=== PATIENT | female | born 1965 | race Caucasian/White ===

== ENCOUNTER → 2016-12-25 | Outpatient (CLI) | payer BC ==
--- NOTE | 2016-12-29 10:19 | MM ---
Reason for exam: screening (asymptomatic). History: Family history of breast cancer in mother at age 52. Benign excisional biopsy of the right breast, 1998. Physical Findings: A clinical breast exam by your physician is recommended on an annual basis and results should be correlated with mammographic findings. MG 3D Screening Mammo W/Cad Bilateral CC and MLO view(s) were taken. The breast tissue is heterogeneously dense. This may lower the sensitivity of mammography. There is no discrete abnormality. No significant changes when compared with prior studies. ASSESSMENT: Negative, BI-RAD 1 RECOMMENDATION: Routine screening mammogram of both breasts in 1 year.
== END | disposition home or self-care (01) ==
LOC: RADMAMWWP 12:55
PROVIDERS: ATTEND Family Medicine
DX: Z12.31 Encounter for screening mammogram for malignant neoplasm of breast (principal)
CPT/HCPCS: 77063; G0202

== ENCOUNTER → 2019-01-03 | Outpatient (CLI) | payer BC ==
--- NOTE | 2019-01-04 07:56 | MM ---
Reason for exam: screening (asymptomatic). Last mammogram was performed 2 years ago. History: Family history of breast cancer in mother at age 52. Benign excisional biopsy of the right breast, 1998. Physical Findings: A clinical breast exam by your physician is recommended on an annual basis and results should be correlated with mammographic findings. MG 3D Screening Mammo W/Cad Bilateral CC and MLO view(s) were taken. Prior study comparison: December 25, 2016, bilateral MG 3d screening mammo w/cad. The breast tissue is heterogeneously dense. This may lower the sensitivity of mammography. There is a stable 8.6mm right lower inner quadrant middle depth mass. Benign appearing calcifications in the right breast. No suspicious abnormality. Post surgical change on the right. No significant changes when compared with prior studies. ASSESSMENT: Benign, BI-RAD 2 RECOMMENDATION: Routine screening mammogram of both breasts in 1 year.
== END | disposition home or self-care (01) ==
LOC: RADMAMWWP 12:41
PROVIDERS: ATTEND Family Medicine
DX: Z12.31 Encounter for screening mammogram for malignant neoplasm of breast (principal)
CPT/HCPCS: 77063; 77067

== ENCOUNTER → 2020-06-15 | Outpatient (CLI) | payer BC | END | disposition home or self-care (01) | LOC: RADMAMWWP 07:57 | PROVIDERS: ATTEND Family Medicine | DX: Z12.31 Encounter for screening mammogram for malignant neoplasm of breast (principal); Z80.3 Family history of malignant neoplasm of breast | CPT/HCPCS: 77063; 77067 ==

== ENCOUNTER → 2020-06-22 | Outpatient (CLI) | payer BC ==
--- NOTE | 2020-06-22 13:34 | MM ---
Reason for exam: additional evaluation requested from abnormal screening. Last mammogram was performed less than 1 month ago. History: Patient is postmenopausal. Family history of breast cancer in mother at age 52. Benign excisional biopsy of the right breast, 1998. Physical Findings: Nurse did not find any significant physical abnormalities on exam. MG 3D Work Up W/Cad RT Spot compression CC, spot compression MLO, and ML view(s) were taken of the right breast. Prior study comparison: June 15, 2020, bilateral MG 3d screening mammo w/cad. January 03, 2019, bilateral MG 3d screening mammo w/cad. The breast tissue is heterogeneously dense. This may lower the sensitivity of mammography. Additional views show a 1.0cm low density circumscribed mass, suspected cyst. This can be confirmed with ultrasound. These results were verbally communicated with the patient and result sheet given to the patient on 06/22/20. ASSESSMENT: Incomplete: need additional imaging evaluation, BI-RAD 0 RECOMMENDATION: Ultrasound of the right breast.
--- NOTE | 2020-06-22 13:36 | USB ---
Reason for exam: additional evaluation requested from abnormal screening. History: Patient is postmenopausal. Family history of breast cancer in mother at age 52. Benign excisional biopsy of the right breast, 1998. US Breast Workup Limited RT Right limited breast ultrasound including focal area of concern, retroareolar and axilla demonstrates a 0.9 x 0.5 x 0.9cm cystic cluster at 6 o'clock, favored over a minimally complex cyst, 1 year follow up diagnostic mammogram recommended and duct ectasia at the posterior nipple. Scanned 6-9 o'clock. These results were verbally communicated with the patient and result sheet given to the patient on 06/22/20. ASSESSMENT: Probably benign, BI-RAD 3 RECOMMENDATION: Follow-up diagnostic mammogram of both breasts in 1 year.
== END | disposition home or self-care (01) ==
LOC: RADMAMWWP 08:02
PROVIDERS: ATTEND Family Medicine
DX: N60.01 Solitary cyst of right breast (principal); Z78.0 Asymptomatic menopausal state; Z80.3 Family history of malignant neoplasm of breast
CPT/HCPCS: 77061; 77065

== ENCOUNTER → 2021-11-28 | Outpatient (CLI) | payer BC ==
--- NOTE | 2021-11-29 07:18 | US ---
EXAMINATION TYPE: US abdomen complete DATE OF EXAM: 11/28/2021 COMPARISON: NONE CLINICAL HISTORY: R10.11 abd pain. Epigastric pain intermittently x 2-3 years. TECHNIQUE: Multiple sonographic images of the abdomen are obtained. 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 Exam is limited due to overlying bowel gas. Pancreas: Not well seen. Liver: Appears very heterogeneous with increased attenuation and echogenicity. Indistinct, hypoechoic area seen near the gallbladder: 1.0 x 1.5 x 2.9 cm, suggestive of possible foc al fatty sparing. Gallbladder: Wall echo shadow sign seen. Evidence for sonographic Molina's sign: No. CBD: Appears wnl Spleen: Appears wnl Right Kidney: No hydronephrosis or masses seen Left Kidney: No hydronephrosis or masses seen Upper IVC: Appears wnl Abd Aorta: Appears wnl IMPRESSION: 1. Hepatic steatosis with areas of focal fatty sparing. 2. The gallbladder is filled with gallstones.
== END | disposition home or self-care (01) ==
LOC: RADUSWWP 08:04
PROVIDERS: ATTEND Surgery
DX: K80.20 Calculus of gallbladder without cholecystitis without obstruction (principal); K76.0 Fatty (change of) liver, not elsewhere classified
CPT/HCPCS: 76700

== ENCOUNTER → 2022-01-13 | Outpatient (CLI) | payer BC ==
--- NOTE | 2022-01-13 09:12 | MM ---
Reason for Exam: Follow-up at short interval from prior study. Last mammogram was performed 1 year(s) and 7 month(s) ago. Patient History: Menarche at age 15. First Full-Term at age 26. Postmenopausal. 1998, Benign Excisional Biopsy on the right side. Mother had breast cancer, age 52. Risk Values: Tasha 5 year model risk: 2.6%. NCI Lifetime model risk: 17.9%. Prior Study Comparison: 12/25/2016 Bilateral Screening Mammogram, [facility]. 01/03/2019 Bilateral Screening Mammogram, [facility]. 06/15/2020 Bilateral Screening Mammogram, [facility]. 06/22/2020 Right Diagnostic Mammogram, [facility]. Tissue Density: The breast tissue is heterogeneously dense. This may lower the sensitivity of mammography. Findings: Analyzed By CAD. Stable appearing clusters of cysts as seen on prior ultrasound and mammography. Stable right-sided clusters of cysts as seen on prior ultrasound and mammography. No new suspicious masses, calcifications or distortions. Overall Assessment: Benign, BI-RAD 2 Management: Screening Mammogram of both breasts in 1 year. A clinical breast exam by your physician is recommended on an annual basis and results should be correlated with mammographic findings. This exam should not preclude additional follow-up of suspicious palpable abnormalities. Results were given to the patient verbally at the time of exam. Electronically signed and approved by: Keyshawn Gonzalez DO
== END | disposition home or self-care (01) ==
LOC: RADMAMWWP 08:40
PROVIDERS: ATTEND Family Medicine
DX: R92.8 Other abnormal and inconclusive findings on diagnostic imaging of breast (principal); Z78.0 Asymptomatic menopausal state; Z80.3 Family history of malignant neoplasm of breast
CPT/HCPCS: 77062; 77066

== ENCOUNTER → 2023-01-14 | Outpatient (CLI) | payer BC ==
--- NOTE | 2023-01-15 08:48 | MM ---
Reason for Exam: Screening (asymptomatic). Last screening mammogram was performed 12 month(s) ago. Patient History: Menarche at age 15. First Full-Term at age 26. Postmenopausal. 1998, Benign Excisional Biopsy on the right side. Mother had breast cancer, age 52. Risk Values: Tasha 5 year model risk: 2.7%. NCI Lifetime model risk: 17.6%. Prior Study Comparison: 06/15/2020 Bilateral Screening Mammogram, [facility]. 06/22/2020 Right Diagnostic Mammogram, [facility]. 01/13/2022 Bilateral MG 3D diag mammo w/cad [place], [facility]. Tissue Density: The breast tissue is heterogeneously dense. This may lower the sensitivity of mammography. Findings: Analyzed By CAD. There is no suspicious group of microcalcifications in either breast. Benign calcifications within the right breast. No new suspicious mass within the right breast. Focal asymmetry identified within the central left breast at posterior depth slightly upper outer quadrant. Overall Assessment: Incomplete: need additional imaging evaluation, BI-RAD 0 Management: Diagnostic Mammogram of the left breast. A clinical breast exam by your physician is recommended on an annual basis and results should be correlated with mammographic findings. [facility] will attempt to contact patient to return for supplemental views and ultrasound if indicated. Note on Tasha scores and lifetime risk: 1. A Tasha score greater than 3% is considered moderate risk. If this is the case, consider specialist referral to assess eligibility for a risk reducing agent. If overall lifetime risk for the development of breast cancer is 20% or higher, the patient may qualify for future screening with alternating mammogram and breast MRI. Electronically signed and approved by: Shar Tse D.O.
== END | disposition home or self-care (01) ==
LOC: RADMAMWWP 07:27
PROVIDERS: ATTEND Family Medicine
DX: Z12.31 Encounter for screening mammogram for malignant neoplasm of breast (principal); Z78.0 Asymptomatic menopausal state; Z80.3 Family history of malignant neoplasm of breast
CPT/HCPCS: 77067

== ENCOUNTER → 2023-01-21 | Outpatient (CLI) | payer BC ==
--- NOTE | 2023-01-21 15:15 | MM ---
Reason for Exam: Additional evaluation requested from abnormal screening. Last screening mammogram was performed less than 1 month ago. Patient History: Menarche at age 15. First Full-Term at age 26. Postmenopausal. 1998, Benign Excisional Biopsy on the right side. Mother had breast cancer, age 52. Risk Values: Tasha 5 year model risk: 2.7%. NCI Lifetime model risk: 17.6%. Prior Study Comparison: 06/22/2020 Right Diagnostic Mammogram, [facility]. 01/13/2022 Bilateral MG 3D diag mammo w/cad [place], [facility]. 01/14/2023 Bilateral MG screening mammo w CAD, [facility]. Tissue Density: Left: There are scattered fibroglandular densities. Findings: Analyzed By CAD. Persistent equal density 8 mm circumscribed oval mass within the upper outer left breast posteriorly. Overall Assessment: Incomplete: need additional imaging evaluation, BI-RAD 0 Management: Diagnostic Breast Ultrasound of the left breast. A clinical breast exam by your physician is recommended on an annual basis and results should be correlated with mammographic findings. This exam should not preclude additional follow-up of suspicious palpable abnormalities. Results were given to the patient verbally at the time of exam. Note on Tasha scores and lifetime risk: 1. A Tasha score greater than 3% is considered moderate risk. If this is the case, consider specialist referral to assess eligibility for a risk reducing agent. If overall lifetime risk for the development of breast cancer is 20% or higher, the patient may qualify for future screening with alternating mammogram and breast MRI. Electronically signed and approved by: Shar Tse D.O.
--- NOTE | 2023-01-21 15:38 | USB ---
Reason for Exam: Additional evaluation requested from abnormal screening. Patient History: Menarche at age 15. First Full-Term at age 26. Postmenopausal. 1998, Benign Excisional Biopsy on the right side. Mother had breast cancer, age 52. Risk Values: Tasha 5 year model risk: 2.7%. NCI Lifetime model risk: 17.6%. Technique: Method: Targeted. Prior Study Comparison: 06/22/2020 Right Diagnostic Mammogram, [facility]. 01/13/2022 Bilateral MG 3D diag mammo w/cad [facility], [facility]. 01/14/2023 Bilateral MG screening mammo w CAD, [facility]. Findings: The upper outer quadrant of the left breast, the axilla of the left breast and the retroareolar of the left breast were scanned. Targeted ultrasound of left breast from 12 to 3:00 position evaluation of the nipple and axillary tail was performed. There is a cluster of cysts identified within the left breast at 3:00 9 cm from the nipple measuring 0.8 x 0.5 x 0.8 cm. No internal color flow.. Overall Assessment: Benign, BI-RAD 2 Management: Screening Mammogram of both breasts in 1 year. A clinical breast exam by your physician is recommended on an annual basis and results should be correlated with mammographic findings. This exam should not preclude additional follow-up of suspicious palpable abnormalities. Results were given to the patient verbally at the time of exam. Electronically signed and approved by: Shar Tse D.O.
== END | disposition home or self-care (01) ==
LOC: RADMAMWWP 14:45
PROVIDERS: ATTEND Family Medicine
DX: N63.21 Unspecified lump in the left breast, upper outer quadrant (principal); R92.322 Mammographic fibroglandular density, left breast; Z78.0 Asymptomatic menopausal state; Z80.3 Family history of malignant neoplasm of breast
CPT/HCPCS: 77061; 77065

== ENCOUNTER 2023-12-21 01:44 | Emergency (ER) | payer BC ==
--- NOTE | 2023-12-21 02:12 | ED ---
Abdominal Pain HPI - General Source: patient Mode of arrival: ambulatory Limitations: no limitations - History of Present Illness MD Complaint: abdominal pain -: hour(s) Location: epigastric Radiation: LUQ, RUQ Migration to: no migration Severity: severe Quality: aching Consistency: constant Improves With: nothing Worsens With: nothing Associated Symptoms: nausea, vomiting <Lonny Marti - Last Filed: 12/21/23 02:09> - General Source: RN notes reviewed, old records reviewed <Noel Hoover - Last Filed: 12/26/23 16:46> - General Chief Complaint: Abdominal Pain Stated Complaint: Abdominal Pain Time Seen by Provider: 12/21/23 01:58 - History of Present Illness Initial Comments: This patient is 59-year-old woman who presents to have evaluation of abdominal pain. She states that it had, and tonight after eating. She indicates the epigastric area and states that it radiates along the costal margin bilaterally. The pain is moderate to severe, constant. She has had associated nausea and vomiting. The patient relates that about a year ago she had similar episode and was told that it may be related to gallbladder. (Lonny Marti) This is a 59-year-old female to ER for evaluation of abdominal pain believes it is gallbladder related pain (Noel Hoover) - Related Data Allergies Allergy/AdvReac Type Severity Reaction Status Date / Time No Known Allergies Allergy Verified 12/21/23 01:48 Review of Systems ROS Other: All systems not noted in ROS Statement are negative. Constitutional: Denies: fever, chills Respiratory: Denies: cough, dyspnea Cardiovascular: Denies: chest pain, palpitations, edema Gastrointestinal: Reports: abdominal pain, nausea, vomiting. Denies: diarrhea, constipation, hematemesis, melena, hematochezia Genitourinary: Denies: dysuria, hematuria Musculoskeletal: Denies: back pain Skin: Denies: rash Neurological: Denies: headache <Lonny Marti - Last Filed: 12/21/23 02:09> ROS Other: All systems not noted in ROS Statement are negative. <Noel Hoover - Last Filed: 12/26/23 16:46> ROS Statement: Those systems with pertinent positive or pertinent negative responses have been documented in the HPI. Past Medical History Past Medical History: No Reported History History of Any Multi-Drug Resistant Organisms: None Reported Additional Past Surgical History / Comment(s): shoulder Past Psychological History: No Psychological Hx Reported Smoking Status: Never smoker Past Alcohol Use History: Rare Past Drug Use History: None Reported <Lonny Marti - Last Filed: 12/21/23 02:09> General Exam Limitations: no limitations General appearance: alert, in no apparent distress Head exam: Present: atraumatic, normocephalic Eye exam: Present: normal appearance. Absent: scleral icterus, conjunctival injection ENT exam: Present: normal oropharynx Respiratory exam: Present: normal lung sounds bilaterally. Absent: respiratory distress, wheezes, rales, rhonchi, stridor, accessory muscle use Cardiovascular Exam: Present: regular rate, normal rhythm, normal heart sounds. Absent: systolic murmur, diastolic murmur, rubs, gallop GI/Abdominal exam: Present: soft, tenderness (Epigastric and right upper quadrants), normal bowel sounds. Absent: distended, guarding, rebound, rigid, mass Extremities exam: Present: normal inspection, normal capillary refill. Absent: pedal edema, calf tenderness Back exam: Present: normal inspection. Absent: CVA tenderness (R), CVA tenderness (L) Neurological exam: Present: alert Skin exam: Present: warm, dry, intact, normal color. Absent: rash <Lonny Marti - Last Filed: 12/21/23 02:09> General appearance: alert, in no apparent distress Head exam: Present: atraumatic, normocephalic, normal inspection Eye exam: Present: normal appearance, PERRL, EOMI. Absent: scleral icterus, conjunctival injection, periorbital swelling ENT exam: Present: normal exam, mucous membranes moist Neck exam: Present: normal inspection. Absent: tenderness, meningismus, lymphadenopathy Respiratory exam: Present: normal lung sounds bilaterally. Absent: respiratory distress, wheezes, rales, rhonchi, stridor Cardiovascular Exam: Present: regular rate, normal rhythm, normal heart sounds. Absent: systolic murmur, diastolic murmur, rubs, gallop, clicks GI/Abdominal exam: Present: soft, normal bowel sounds. Absent: distended, tenderness, guarding, rebound, rigid Extremities exam: Present: normal inspection, full ROM, normal capillary refill. Absent: tenderness, pedal edema, joint swelling, calf tenderness Back exam: Present: normal inspection Neurological exam: Present: alert, oriented X3, CN II-XII intact Psychiatric exam: Present: normal affect, normal mood Skin exam: Present: warm, dry, intact, normal color. Absent: rash <Noel Hoover - Last Filed: 12/26/23 16:46> Course <Noel Hoover - Last Filed: 12/26/23 16:46> Vital Signs 12/21/23 12/21/23 12/21/23 01:48 03:50 06:55 Temperature 98.2 F Pulse Rate 95 71 55 L Respiratory 20 18 18 Rate Blood Pressure 102/70 120/71 121/68 O2 Sat by Pulse 100 97 96 Oximetry 12/21/23 08:48 Temperature 98 F Pulse Rate 57 L Respiratory 18 Rate Blood Pressure 141/96 O2 Sat by Pulse 99 Oximetry - Reevaluation(s) Reevaluation #1: Medical records reviewed (Noel Hoover) Reevaluation #2: Patient symptoms improved (Noel Hoover) Reevaluation #3: Patient informed of results and questions answered (Noel Hoover) Reevaluation #4: Was pt. sent in by a medical professional or institution (ADALI Verde, ENROLLMENT SERVICES VICE PRESIDENT, urgent care, hospital, or alf...) When possible be specific @ -no Did you speak to anyone other than the patient for history (EMS, parent, family, police, friend...)? What history was obtained from this source @ -no Did you review nursing and triage notes (agree or disagree)? Why? @ -agree Are old charts reviewed (outside hosp., previous admission, EMS record, old EKG, old radiological studies, urgent care reports/EKG's, alf records)? Report findings @ -yes Differential Diagnosis (chest pain, altered mental status, abdominal pain women, abdominal pain men, vaginal bleeding, weakness, fever, dyspnea, syncope, headache, dizziness, GI bleed, back pain, seizure, CVA, palpatations, mental health, musculoskeletal)? @ -prior EKG interpreted by me (3pts min.). @ -yes X-rays interpreted by me (1pt min.). @ -no CT interpreted by me (1pt min.). @ -yes negative for acute disease U/S interpreted by me (1pt. min.). @ -yes negative for acute disease What testing was considered but not performed or refused? (CT, X-rays, U/S, labs)? Why? @ -none What meds were considered but not given or refused? Why? @ -none Did you discuss the management of the patient with other professionals (professionals i.e. Dr., PA, ENROLLMENT SERVICES VICE PRESIDENT, lab, RT, psych nurse, social media manager, guard supervisor, teacher, veterans service officer, piano case and bench assembler)? Give summary @ -no Was smoking cessation discussed for >3mins.? @ -no Was critical care preformed (if so, how long)? @ -no Were there social determinants of health that impacted care today? How? (Homelessness, low income, unemployed, alcoholism, drug addiction, transportation, low edu. Level, literacy, decrease access to med. care, penitentiary, rehab)? @ -none Was there de-escalation of care discussed even if they declined (Discuss DNR or withdrawal of care, Hospice)? DNR status @ -no What co-morbidities impacted this encounter? (DM, HTN, Smoking, COPD, CAD, Cancer, CVA, ARF, Chemo, Hep., AIDS, mental health diagnosis, sleep apnea, morbid obesity)? @ -none Was patient admitted / discharged? Hospital course, mention meds given and route, prescriptions, significant lab abnormalities, going to OR and other pertinent info. @ - 58 female to ER with abdominal pain biliary pain biliary colic epigastric abdominal pain with history of gallstones. Patient's symptoms are improved and can be discharged home Discharge Undiagnosed new problem with uncertain prognosis? @ -no Drug Therapy requiring intensive monitoring for toxicity (Heparin, Nitro, Insulin, Cardizem)? @ -no Were any procedures done? @ -no Diagnosis/symptom? @ -Chest pain abdominal biliary colic Acute, or Chronic, or Acute on Chronic? @ -Acute Uncomplicated (without systemic symptoms) or Complicated (systemic symptoms)? @ -Complicated Side effects of treatment? @ -no Exacerbation, Progression, or Severe Exacerbation? @ -exacerbation Poses a threat to life or bodily function? How? (Chest pain, USA, IA, pneumonia, PE, COPD, DKA, ARF, appy, cholecystitis, CVA, Diverticulitis, Homicidal, Suicidal, threat to staff... and all critical care pts) @ -yes with chest pain (Noel Hoover) Reevaluation #5: Differential Abdominal Pain Women: Appendicitis, Cholecystitis, diverticulosis, ischemic bowel, pancreatitis, hepatitis, UTI, gastroenteritis, AAA, incarcerated hernia, bowel obstruction, constipation, inflammatory bowel, hepatitis, peptic ulcer disease, splenic infarction, perforated viscus, vulvitis, ovarian torsion, PID, kidney stone, placenta abruption, this is not meant to be an all-inclusive list (Noel Hoover) Medical Decision Making - Lab Data Result diagrams: 12/21/23 02:19 12/21/23 02:19 - Radiology Data Radiology results: report reviewed (CT abdomen pelvis ultrasound gallbladder negative for acute disease), image reviewed <Noel Hoover - Last Filed: 12/26/23 16:46> - Medical Decision Making 58 female to ER with abdominal pain biliary pain biliary colic epigastric abdominal pain with history of gallstones. Patient's symptoms are improved and can be discharged home (Noel Hoover) - Lab Data Lab Results 12/21/23 12/21/23 12/21/23 Range/Units 02:19 02:19 02:19 WBC 6.0 (3.8-10.6) k/uL RBC 4.58 (3.80-5.40) m/uL Hgb 13.6 (11.4-16.0) gm/dL Hct 40.6 (34.0-46.0) % MCV 88.5 (80.0-100.0) fL MCH 29.8 (25.0-35.0) pg MCHC 33.6 (31.0-37.0) g/dL RDW 13.0 (11.5-15.5) % Plt Count 289 (150-450) k/uL MPV 7.5 Neutrophils % 68 % Lymphocytes % 23 % Monocytes % 7 % Eosinophils % 1 % Basophils % 0 % Neutrophils # 4.1 (1.3-7.7) k/uL Lymphocytes # 1.4 (1.0-4.8) k/uL Monocytes # 0.4 (0-1.0) k/uL Eosinophils # 0.0 (0-0.7) k/uL Basophils # 0.0 (0-0.2) k/uL Sodium 141 (137-145) mmol/L Potassium 4.2 (3.5-5.1) mmol/L Chloride 110 H (98-107) mmol/L Carbon Dioxide 27 (22-30) mmol/L Anion Gap 4 mmol/L BUN 12 (7-17) mg/dL Creatinine 0.78 (0.52-1.04) mg/dL Est GFR (CKD-EPI)AfAm >90 (>60 ml/min/1.73 sqM) Est GFR (CKD-EPI)NonAf 86 (>60 ml/min/1.73 sqM) Glucose 95 (74-99) mg/dL Plasma Lactic Acid Jesus 1.5 (0.7-2.0) mmol/L Calcium 9.9 (8.4-10.2) mg/dL Total Bilirubin 1.2 (0.2-1.3) mg/dL AST 642 H (14-36) U/L ALT 449 H (4-34) U/L Alkaline Phosphatase 99 (38-126) U/L Total Protein 7.4 (6.3-8.2) g/dL Albumin 4.7 (3.5-5.0) g/dL Amylase 56 (30-110) U/L Lipase 170 (23-300) U/L Disposition <Lonny Marti - Last Filed: 12/21/23 02:09> Is patient prescribed a controlled substance at d/c from ED?: No <Noel Hoover - Last Filed: 12/26/23 16:46> Clinical Impression: Abdominal pain, Biliary colic, Cholelithiasis Disposition: HOME SELF-CARE Condition: Good Instructions (If sedation given, give patient instructions): Biliary Colic (ED), Gallstones (ED), Low Fat Diet (ED) Referrals: Adams Morton DO [Primary Care Provider] - 1-2 days Rodriguez Bee MD [STAFF PHYSICIAN] - 1-2 days
[2023-12-21] MEDS: SODIUM CHLORIDE 0.9% 500 ML 500 ML IV STA (02:14)
[2023-12-21] MEDS: KETOROLAC 15 MG/ML 1 ML VIAL IVP STA (02:15)
--- NOTE | 2023-12-21 02:34 | CT ---
EXAM: CT Abdomen and Pelvis Without Intravenous Contrast CLINICAL HISTORY: ITS.REASON CT Reason: abdominal pain, RUQ/epigastric TECHNIQUE: Axial computed tomography images of the abdomen and pelvis without intravenous contrast. CTDI is 12.8 mGy and DLP is 792.7 mGy-cm. This CT exam was performed using one or more of the following dose reduction techniques: automated exposure control, adjustment of the mA and/or kV according to patient size, and/or use of iterative reconstruction technique. COMPARISON: No relevant prior studies available. FINDINGS: Lung bases: Unremarkable. No mass. No consolidation. ABDOMEN: Liver: Unremarkable. Gallbladder and bile ducts: Cholelithiasis. No ductal dilation. Pancreas: Unremarkable. No ductal dilation. Spleen: Unremarkable. No splenomegaly. Adrenals: Unremarkable. No mass. Kidneys and ureters: Unremarkable. No hydronephrosis, nephrolithiasis, or obstructive uropathy. Stomach and bowel: Mild fecal retention, correlate for constipation. Diverticulosis, without acute diverticulitis. No small bowel obstruction. No free intraperitoneal air. PELVIS: Appendix: No findings to suggest acute appendicitis. Bladder: Unremarkable. No stones. Reproductive: Unremarkable as visualized. ABDOMEN and PELVIS: Intraperitoneal space: Unremarkable. No free air. No significant fluid collection. Bones/joints: No acute fracture. No dislocation. Soft tissues: Unremarkable. Vasculature: Unremarkable. No abdominal aortic aneurysm. Lymph nodes: Unremarkable. No enlarged lymph nodes. IMPRESSION: 1. No hydronephrosis, nephrolithiasis, or obstructive uropathy. 2. Mild fecal retention, correlate for constipation. 3. Diverticulosis, without acute diverticulitis. No small bowel obstruction. No free intraperitoneal air.
[2023-12-21 02:39] LABS: Basophils % (A) 0 %; Eosinophils % (A) 1 %; HCT 40.6 % (34.0-46.0); HGB 13.6 gm/dL (11.4-16.0); Lymphocytes # (A) 1.4 k/uL (1.0-4.8); Lymphocytes % (A) 23 %; MCH 29.8 pg (25.0-35.0); MCHC 33.6 g/dL (31.0-37.0); MCV 88.5 fL (80.0-100.0); Mean Platelet Volume 7.5; Monocytes # (A) 0.4 k/uL (0-1.0); Monocytes % (A) 7 %; Neutrophils # (A) 4.1 k/uL (1.3-7.7); Neutrophils % (A) 68 %; Platelet Count 289 k/uL (150-450); RBC 4.58 m/uL (3.80-5.40)
[2023-12-21 03:11] LABS: ALT 449 U/L (4-34); AST 642 U/L (14-36); African American GFR (CKD) >90 (>60 ml/min/1.73 sqM); Albumin 4.7 g/dL (3.5-5.0); Alkaline Phosphatase 99 U/L (38-126); Amylase 56 U/L (30-110); Anion Gap 4 mmol/L; Blood Urea Nitrogen 12 mg/dL (7-17); Calcium 9.9 mg/dL (8.4-10.2); Carbon Dioxide 27 mmol/L (22-30); Chloride 110 mmol/L (98-107); Glucose 95 mg/dL (74-99); Lipase 170 U/L (23-300); Non-African American GFR(CKD) 86 (>60 ml/min/1.73 sqM); Potassium 4.2 mmol/L (3.5-5.1); Sodium 141 mmol/L (137-145); Total Bilirubin 1.2 mg/dL (0.2-1.3); Total Protein 7.4 g/dL (6.3-8.2)
[2023-12-21] MEDS: HYDROmorphone 0.5 MG/0.5 ML SYRINGE IVP STA (03:49)
[2023-12-21 03:50] VITALS: RESP 18
--- NOTE | 2023-12-21 07:46 | US ---
EXAMINATION TYPE: US abdomen limited DATE OF EXAM: 12/21/2023 COMPARISON: NONE CLINICAL INDICATION: Female, 58 years old with history of attention RUQ; known GB stones, "attack" ye sterday TECHNIQUE: Multiple sonographic images of the right upper quadrant are obtained. FINDINGS: EXAM MEASUREMENTS: Liver Length: 15.2 cm Gallbladder Wall: 0.3 cm CBD: 0.7 cm Right Kidney: 10.0 x 4.3 x 4.7 cm Pancreas: wnl Liver: wnl Gallbladder: 2 stones noted, one dependant within neck Evidence for sonographic Molina's sign: no CBD: wnl Right Kidney: wnl IMPRESSION: Cholelithiasis. [facility], , 12/21/2023 7:44 AM
[2023-12-21] MEDS: IBUPROFEN 600 MG STARTER PACK 4 TAB BTL PO STA (08:45)
[2023-12-21] MEDS: ONDANSETRON 4 MG ODT STARTER PACK 2 TAB BTL PO STA (08:45)
[2023-12-21] MEDS: traMADol 50 MG STARTER PACK 3 TAB BTL PO STA (08:45)
[2023-12-21 08:50] VITALS: BP 141/96; PULSE 57; TEMP 98
== END 2023-12-21 08:50 | disposition home or self-care (01) ==
LOC: EC 01:44
CPT/HCPCS: 36415; 74176; 76705; 80053; 82150; 83605; 83690; 85025; 96374; 96375; 99284

== ENCOUNTER → 2023-12-30 | Outpatient (CLI) | payer BC ==
--- NOTE | 2023-12-31 11:17 | MM ---
Reason for Exam: Screening (asymptomatic). Last screening mammogram was performed 12 month(s) ago. Patient History: Menarche at age 15. First Full-Term at age 26. Postmenopausal. 1998, Benign Excisional Biopsy on the right side. Mother had breast cancer, age 52. Risk Values: Tasha 5 year model risk: 2.8%. NCI Lifetime model risk: 17.3%. Prior Study Comparison: 01/13/2022 Bilateral MG 3D diag mammo w/cad [facility], [facility]. 01/14/2023 Bilateral MG screening mammo w CAD, [facility]. 01/21/2023 Left MG 3D work up w/cad LT, [facility]. Tissue Density: The breasts are heterogeneously dense, which may obscure small masses. Findings: Analyzed By CAD. There is no suspicious group of microcalcifications or new suspicious mass in either breast. Overall Assessment: Benign, BI-RAD 2 Management: Screening Mammogram of both breasts in 1 year. . Patient should continue monthly self-breast exams. A clinical breast exam by your physician is recommended on an annual basis. This exam should not preclude additional follow-up of suspicious palpable abnormalities. Note on Tasha scores and lifetime risk: 1. A Tasha score greater than 3% is considered moderate risk. If this is the case, consider specialist referral to assess eligibility for a risk reducing agent. 2. If overall lifetime risk for the development of breast cancer is 20% or higher, the patient may qualify for future screening with alternating mammogram and breast MRI. [facility], , 12/31/2023 11:14 AM. Electronically signed and approved by: Jay Gant M.D. Radiologis
== END | disposition home or self-care (01) ==
LOC: RADMAMWWP 15:41
PROVIDERS: ATTEND Family Medicine
CPT/HCPCS: 77067

== ENCOUNTER 2024-01-15 06:18 | Day surgery (SDC) | payer BC ==
[~2024-01-15 06:18] MED LIST: LIDOCAINE 1% (10MG/ML) FOR IV START INTRADERMA PRN; MIDAZOLAM 2 MG/2 ML VIAL IV PRN; fentaNYL (PF) 50 MCG/ML 2 ML AMP IVP PRN
[2024-01-15] MEDS: ONDANSETRON 4 MG/2 ML VIAL IVP ONE (06:57)
[2024-01-15] MEDS: LACTATED RINGERS 1,000 ML IV SCH (06:57)
[2024-01-15] MEDS: HEPARIN SODIUM,PORCINE 5,000 UNIT/ML 1 ML VIAL SQ PRN (06:57)
[2024-01-15] MEDS: DEXAMETHASONE SOD PHOSPHATE 4 MG/ML 1 ML VIAL IV ONE (06:57)
[2024-01-15] MEDS: ACETAMINOPHEN TAB 500 MG TAB PO PRN (06:58)
[2024-01-15] MEDS: IV FLUID CONTINUATION 1,000 ML IV ONE ×2 (07:11→10:53)
[2024-01-15 07:29] LABS: Basophils % (A) 1 %; Eosinophils # (A) 0.1 k/uL (0-0.7); Eosinophils % (A) 1 %; HCT 38.7 % (34.0-46.0); HGB 12.4 gm/dL (11.4-16.0); Lymphocytes # (A) 1.8 k/uL (1.0-4.8); Lymphocytes % (A) 35 %; MCH 28.9 pg (25.0-35.0); MCV 90.3 fL (80.0-100.0); Mean Platelet Volume 7.3; Monocytes # (A) 0.3 k/uL (0-1.0); Monocytes % (A) 7 %; Neutrophils # (A) 2.7 k/uL (1.3-7.7); Neutrophils % (A) 54 %; Platelet Count 239 k/uL (150-450); RBC 4.29 m/uL (3.80-5.40); RDW 12.5 % (11.5-15.5); WBC 5.1 k/uL (3.8-10.6)
[2024-01-15] MEDS ORDERED: KETAMINE HCL IN 0.9 % NACL 50 MG/5 ML SYRINGE ONE (07:32)
[2024-01-15] MEDS ORDERED: LIDOCAINE 1% INJ 10MG/ML (20 ML MDV) ONE (07:32)
[2024-01-15] MEDS ORDERED: HYDROmorphone (PF) 1 MG/ML ONE (07:32)
[2024-01-15] MEDS ORDERED: PROPOFOL 10 MG/ML 20 ML VIAL IV ONE (07:32)
[2024-01-15] MEDS ORDERED: MIDAZOLAM 2 MG/2 ML VIAL ONE (07:32)
[2024-01-15] MEDS ORDERED: ROCURONIUM 10 MG/ML (5 ML VIAL) IV ONE (07:32)
[2024-01-15] MEDS ORDERED: SUCCINYLCHOLINE CHLORIDE 200 MG/10 ML VIAL IV ONE (07:32)
[2024-01-15] MEDS ORDERED: KETOROLAC 15 MG/ML 1 ML VIAL ONE (07:32)
[2024-01-15] MEDS ORDERED: fentaNYL (PF) 50 MCG/ML 2 ML AMP ONE (07:32)
[2024-01-15] MEDS: BUPIVACAINE (PF) 0.25% 30 ML VIAL SQ ONE (07:46)
[2024-01-15] MEDS: LACTATED RINGERS 1,000 ML IV ONE (08:17)
[2024-01-15] MEDS: HYDROmorphone 0.5 MG/0.5 ML SYRINGE IVP PRN (08:43)
--- NOTE | 2024-01-15 08:49 | P.OP ---
Date of Procedure: 01/15/24 Preoperative Diagnosis: Cholelithiasis Postoperative Diagnosis: Cholelithiasis Procedure(s) Performed: Upper scopic cholecystectomy Anesthesia: LORNA Surgeon: Rodriguez Bee Estimated Blood Loss (ml): 5 Pathology: other (Gallbladder) Condition: stable Disposition: PACU Description of Procedure: The patient was placed on the operating table. The patient received a general endotracheal tube anesthesia. The patients abdomen was prepped and draped in the usual sterile fashion. Through an infraumbilical stab incision, the fascia of the anterior abdominal wall was grasped with a pair of Kochers and then the Veress needle was placed in the peritoneal cavity. Position of the Veress needle was confirmed with positive drop test. The abdomen was then insufflated. After adequate insufflation, the 10 mm trocar was placed in the peritoneal cavity. Following this the laparoscope was placed in the peritoneal cavity. The patient was placed in the head-up, right side up position and then a 5 mm trocar was placed in the right lateral and right subcostal position under direct visualization. A 8 mm trocar was placed in the epigastric position. The gallbladder was grasped in the fundus and infundibulum. Traction on the gallbladder was placed in the lateral and the cephalad positions. The triangle of Calot was visualized.. The cystic duct was bluntly dissected until the union of the cystic duct and common bile duct was seen. A critical view of safety was achieved. The cystic duct was then divided and sealed with the Harmonic scissors. A PDS Endoloop was then placed throughout the cystic duct stump. The cystic artery divided and sealed with the Harmonic scissors. The gallbladder was then removed from the liver bed using Harmonic scissors. The gallbladder was then extracted through the epigastric port site. Operative field was checked for any bleeding spots and Harmonic scissors was used to coagulate the liver bed. The abdomen was irrigated. The trocars were removed. The skin was closed using interrupted 3-0 Vicryl suture. Dermabond dressing were applied. The patient tolerated the procedure well.
[2024-01-15 09:01] VITALS: TEMP 96.8
[2024-01-15 12:02] VITALS: BP 102/68; PULSE 56; RESP 14
== END 2024-01-15 12:12 | disposition home or self-care (01) ==
LOC: OR 06:18
PROVIDERS: ATTEND Surgery
DX: K80.10 Calculus of gallbladder with chronic cholecystitis without obstruction (principal); Z79.899 Other long term (current) drug therapy
CPT/HCPCS: 88304; 85025; 47562; J2250; J0330; J1644; J1100; J0690; J2405; J2003; J3010; J1171 ×2; J1885; J2704; J0665